=== PATIENT | female | born 1990 | race Caucasian/White ===

== ENCOUNTER 2016-12-22 02:08 | Inpatient (IN) | payer OTHER ==
[~2016-12-22] VITALS: Ht 165.1 cm; Wt 93.6 kg
[2016-12-22] MEDS ORDERED: LACTATED RINGER'S 1000ML 500 ML IV PRN (11:20)
[2016-12-22] MEDS ORDERED: LACTATED RINGER'S 1000ML 1,000 ML IV PRN (11:20)
[2016-12-22] MEDS ORDERED: OXYTOCIN 30 UNITS/500ML NSS IV PRN (11:30)
[2016-12-22] MEDS: LACTATED RINGER'S 1000ML 1,000 ML IV SCH ×2 (11:49→17:12)
--- NOTE | 2016-12-22 11:54 | HISTORY & PHYSICAL EXAMINATION ---
DATE OF ADMISSION: 12/22/2016 CHIEF COMPLAINT: Scheduled induction of labor for postdates and recently diagnosis gestational hypertension. HISTORY OF PRESENT ILLNESS: The patient is a 26-year-old G1, P0 at 40 weeks and 3 days of gestation who was originally scheduled for induction of labor on Saturday, December 24. She presented to the office on 12/19/2016 when her blood pressure was 136/80 and she had protein 1+ in her urine. She had labs drawn for LFTs and platelets which were normal and 24-hour protein level was 224 mg in 24-hour urine, so she was recommended to come back in 2 days for repeat blood pressure. She presented yesterday, her blood pressure was 142/96 and she was recommended to have induction of labor at term due to gestational hypertension and at term. The patient denies any problems today, no contractions, leakage of fluid, or vaginal bleeding. She reports good movements. She denies fever, chills, chest pain, shortness of breath. She denies headache, change in her vision, nausea, vomiting, epigastric or right upper quadrant pain. Her has been uncomplicated except history of scoliosis and a recently diagnosis borderline polyhydramnios, YAIMA of 21. Growth scan showed estimated weight to be 8 pounds and 8 ounces, 59th percentile. PAST MEDICAL HISTORY: As above. She denies any medical problems. PAST SURGICAL HISTORY: None. MEDICATIONS: vitamins. ALLERGIES: PENICILLIN CAUSES RASH. 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 She denies smoking, alcohol, or drug use. GYNECOLOGIC HISTORY: The patient denies any history of STDs including Chlamydia, gonorrhea, herpes. This is her first . LABS: Her blood type is O positive, antibody screen negative, RPR nonreactive, hepatitis B surface antigen negative. H\T\H was 13/40, platelets 282. GC chlamydia cultures were negative. Urine culture was negative. Glucola was 150 mg per deciliter. Repeat H\T\H was 13/38. GBS culture was negative on 11/27/2016. PHYSICAL EXAMINATION: GENERAL: The patient is alert, oriented x3, not in acute distress. VITAL SIGNS: Blood pressure is 145/93, repeat is 137/94, pulse is 95, respiration 22, temperature is 36.5 Celsius. CARDIOVASCULAR SYSTEM: S1, S2, RRR. LUNGS: Clear to auscultation bilaterally. ABDOMEN: Soft, gravid, Yaya 8-9 pounds. EXTREMITIES: Nontender, +1 pretibial and feet edema. Reflexes are 3+. VE: 2/ 60%/ -3 FHR: 140's category I Valeria : mild to moderate contractions q 2-4 min ASSESSMENT AND PLAN: The patient is a 26-year-old G1, P0 at 40 weeks and 3 days of gestation presenting for scheduled induction of labor at term due to gestational hypertension. Vital signs stable, afebrile. Physical exam is unremarkable except brisk reflexes. heart rate is reassuring. GBS negative. Plan is admit her, start IV fluids, obtain labs for LFTs, platelets, CBC and start Pitocin for augmentation of her contractions and induction. The patient understands that the induction may take longer time than spontaneous labor. She understands the risks and benefits and agrees with the plan. All questions were answered. FUNMI
[2016-12-22 12:22] LABS: ALT/SGPT 16 U/L (12-78); AST/SGOT 16 U/L (15-37); BLOOD UREA NITROGEN 8 mg/dl (7-18); BUN/CREATININE RATIO 14.1 (10-20); CALCIUM 9.2 mg/dl (8.5-10.1); CARBON DIOXIDE 23 mmol/L (21-32); CHLORIDE 106 mmol/L (98-107); CREATININE 0.56 mg/dl (0.60-1.20); GLUCOSE 76 mg/dl (70-99); POTASSIUM 3.9 mmol/L (3.5-5.1); SODIUM 139 mmol/L (136-145)
[2016-12-22 12:24] LABS: ALB/GLOB RATIO 0.7 (0.9-2); ALKALINE PHOSPHATASE 188 U/L (45-117); HEMATOCRIT 37.8 % (37-47); MEAN CORPUSCULAR HEMOGLOBIN 31.2 pg (25-34); MEAN CORPUSCULAR HGB CONC 34.7 g/dl (32-36); PLATELET COUNT 159 K/uL (130-400); WHITE BLOOD COUNT 11.47 K/uL (4.8-10.8)
[2016-12-22 14:29] VITALS: Ht 165.1 cm; Wt 93.6 kg
[2016-12-22] MEDS ORDERED: PRENTAB26 PO (14:29)
[2016-12-22] MEDS ORDERED: BUTORPHANOL TARTRATE 1 MG/ML VIAL IV PRN (22:00)
[2016-12-22] MEDS ORDERED: BUPIVACAINE 0.25% 30 ML VIAL ONE (23:17)
[2016-12-22] MEDS ORDERED: EpHEDrine SULFATE INJ 50 MG/ML AMP ONE (23:18)
[2016-12-22] MEDS ORDERED: FENTANYL CITRATE INJ 50 MCG/1 ML 2 ML VIAL ONE (23:18)
[2016-12-22] MEDS ORDERED: FENTANYL 2MCG/ML ROPIV 1.25MG/ML 100ML BAG EPI ONE (23:18)
[2016-12-23] MEDS ORDERED: NALOXONE HCL INJ 1 MG in SODIUM CHLORIDE 0.9% 1000ML 1,000 ML IV PRN (00:04)
[2016-12-23] MEDS ORDERED: LACTATED RINGER'S 1000ML 500 ML IV PRN (00:04)
[2016-12-23] MEDS ORDERED: NALBUPHINE HCL INJ 10 MG/ML AMP IV PRN (00:15)
[2016-12-23] MEDS ORDERED: ONDANSETRON INJ 2 MG/ML 2 ML VIAL IV PRN (00:15)
[2016-12-23] MEDS ORDERED: NALOXONE HCL INJ 0.4 MG/1 ML VIAL/CARP IV PRN (00:15)
[2016-12-23] MEDS ORDERED: EpHEDrine SULFATE INJ 50 MG/ML AMP IV PRN (00:15)
[2016-12-23] MEDS ORDERED: DiphenhydrAMINE HCL 50 MG/ML VIAL IV PRN (00:15)
[2016-12-23] MEDS: LACTATED RINGER'S 1000ML 1,000 ML IV SCH ×2 (06:38→12:36)
[2016-12-23] MEDS: FENTANYL 2MCG/ML ROPIV 1.25MG/ML 100ML BAG EPI PRN ×4 (06:56→15:06)
[2016-12-23] MEDS ORDERED: FENTANYL CITRATE INJ 50 MCG/1 ML 2 ML VIAL ONE (11:35)
[2016-12-23] MEDS: CLINDAMYCIN IV 900 MG in DEXTROSE 5% ADD-VANTAGE 100ML 100 ML IV SCH (15:46)
[2016-12-23] MEDS ORDERED: MEPERIDINE HCL 25 MG/ML CARP ONE (15:55)
[2016-12-23] MEDS ORDERED: GENTAMICIN INJ 120 MG in DEXTROSE 5% 100ML 100 ML IV ONE (16:00)
[2016-12-23] MEDS ORDERED: MISOPROSTOL 200 MCG TAB ONE (16:07)
[2016-12-23] MEDS ORDERED: DIPHTHERIA/TETANUS/PERTUSSIS 0.5 ML SYR/VIAL IM. ONE (16:30)
[2016-12-23] MEDS ORDERED: BENZOCAINE 20% AER SPR 82.5 GM CAN EXT PRN (16:30)
[2016-12-23] MEDS ORDERED: OXYTOCIN 30 UNITS/500ML NSS IV PRN (16:30)
[2016-12-23] MEDS ORDERED: ACETAMINOPHEN 325 MG TAB PO PRN (16:30)
[2016-12-23] MEDS ORDERED: ACETAMINOPHEN/CODEINE 300/30MG TAB PO PRN ×2 (16:30)
[2016-12-23] MEDS ORDERED: LANOLIN OINT EXT PRN ×2 (16:30)
[2016-12-23] MEDS ORDERED: SUPERCREAM 0.870 % 15GM JAR EXT PRN (16:30)
[2016-12-23] MEDS ORDERED: HYDROCORTISONE ACETATE 25 MG SUPP PR PRN (16:30)
[2016-12-23] MEDS ORDERED: MISOPROSTOL 200 MCG TAB PR SCH (16:30)
[2016-12-23] MEDS ORDERED: MEASLES, MUMPS & RUBELLA VIRUS VIAL SQ. ONE (16:30)
[2016-12-23] MEDS ORDERED: GENTAMICIN CONSULT ACTIVE PRN (17:00)
--- NOTE | 2016-12-23 17:12 | DELIVERY SUMMARY ---
DATE OF OPERATION: 12/23/2016 TIME OF DELIVERY OF BABY: 1529 p.m. TIME OF DELIVERY OF PLACENTA: 1555 p.m. DETAILS OF DELIVERY: The patient was found to be fully dilated and desired to push. She pushed for about 1-1/2 hours and she was very uncomfortable and the head was over a tight perineum and the hymenal ring. Offered her episiotomy to facilitate delivery of the head and patient agreed with the plan. Right mediolateral episiotomy was opened and head was delivered without difficulty. Shoulders were delivered with minimal traction. Baby was handed off to the mother where mouth and nose were suctioned. Cord was clamped x2 and cut. It was a 3-vessel cord. Then cord blood was obtained. The vagina and perineum were checked for lacerations. There was a right mediolateral episiotomy which was second degree. It was confirmed with rectal exam. Good sphincter tone was noted and gloves were changed. There was a right vaginal laceration on the lower third as well as a left vaginal laceration on the lower third of the vagina. At first, right mediolateral episiotomy was repaired with 2-0 Vicryl in a running fashion, bringing the vaginal mucosa together and perineal body muscles and bulbocavernosus muscles together and the skin in a subcuticular fashion. There was oozing on the right vaginal wall superior to the episio. It was repaired with 2-0 Vicryl in a running locked fashion and multiple sutures were placed to control the oozing. Good hemostasis was achieved. The left vaginal wall was also oozing from the laceration and it was repaired with 2-0 Vicryl in a running locked fashion. Multiple sutures were used to control the bleeding. It was still oozing a small amount of blood from the edges. Retractors were placed in the patient's vagina. Cervix was visualized, grasped with the ring forceps. Cervix was examined to be intact. No bleeding noted. The placenta was found to be in the vagina, delivered spontaneously as intact and complete. Uterus was explored and found to be empty. Lower segment was cleared of all clots and debris. EBL was 400. Bimanual massage was done to help to contract the uterus which happened within 30 seconds. IV Pitocin infusion was started and then she was given 800 mcg of Cytotec rectally. Gloves were changed and then the left vaginal laceration was checked to be again oozing. Pressure was applied and then Fredis powder was applied over this laceration and good hemostasis was achieved. Mother and baby tolerated the procedure well. Sponge, lap and needle counts were correct x2. Baby was a viable female , Apgars 8/9, weight is 9 pounds 1.4 ounces and I was present during whole procedure. I attest to the content of the Intraoperative Record and any orders documented therein. Any exceptions are noted below. LUCIOD
--- NOTE | 2016-12-23 17:48 | Anesthesia Procedure Note ---
Anesthesia Epidural Removal Nt Date & Time Dec 23, 2016 at 17:47 Vital Signs Pain Intensity: 6.0 Notes Mental Status: alert / awake / arousable, participated in evaluation Nausea / Vomiting: adequately controlled Pain: adequately controlled Airway Patency, RR, SpO2: stable & adequate BP & HR: stable & adequate Hydration State: stable & adequate Neuraxial Anesthesia: was administered, sensory block is resolving Anesthetic Complications: no major complications apparent, pt satisfied with anesthetic care Epidural: removed without complications, with tip intact
[2016-12-23] MEDS: GENTAMICIN INJ 140 MG in DEXTROSE 5% 100ML 100 ML IV SCH (18:12)
[2016-12-23 20:00] VITALS: BP 142/92; PULSE 92; TEMP 36.7
[2016-12-23] MEDS: MAGNESIUM HYDROXIDE SUSP 30 ML UDC PO SCH (21:00)
[2016-12-23] MEDS: IBUPROFEN 600 MG TAB PO PRN (21:16)
[2016-12-23] MEDS: BISACODYL 5 MG TABEC PO SCH (21:16)
[2016-12-23] MEDS: DOCUSATE SODIUM 100 MG CAP PO SCH (21:16)
--- NOTE | 2016-12-23 21:58 | Pharmacy Progress Note ---
Pharmacy Antibiotic Consult Date of Service: Dec 23, 2016. Pharmacy Dosing Scope Pharmacy is consulted to initiate Gentamicin IV dosing therapy, order appropriate labs and adjust drug dose/frequency. Subjective The patient is a 26 year old female admitted on Dec 22, 2016 at 10:20. Objective Height (Feet): 5 Height (Inches): 5.00 Weight (Kilograms): 93.600 Assessment & Plan Assessment * 26 y/o F on empiric IV Gentamicin and Clindamycin (not a consult) for unclear diagnosis (genitourinary, non-UTI indication). Patient was febrile during delivery. Therefore, antibiotics were started and to be continued per provider. * Patient with no renal impairment that is at baseline. No labs from today, but per labs on 12/22, sCr was 0.56mg/dL with estimated CrCl >100 mL/min. Estimated Gentamicin pharmacokinetics: * Ke ~0.3, T1/2 ~2.3 hrs, and Vd ~27 L * Given her BMI 34.3 kg/m2 (actual weight >120% of ideal body weight), will calculate Gentamicin dose based on adjusted body weight Plan * Initiate Gentamicin 140mg (~2mg/kg based on adjust body weight) IV q8 * Goal Gentamicin peak 4-10 mcg/mL * Goal Gentamicin trough <1-2 mcg/mL * Peak and trough level before/after 5th dose on 12/25 @ 0200, which should be reflective of steady state * Peak to be drawn ~1 hour after Gentamicin completed infusion Pharmacy will continue to follow and will adjust dose/frequency as necessary. Thank you
[2016-12-24] VITALS (7 sets, daily range): BP systolic 114–130; BP diastolic 78–91; PULSE 79–103; TEMP 36.4–36.9
[2016-12-24] MEDS: LACTATED RINGER'S 1000ML 1,000 ML IV SCH (00:19)
[2016-12-24] MEDS: CLINDAMYCIN IV 900 MG in DEXTROSE 5% ADD-VANTAGE 100ML 100 ML IV SCH ×3 (00:20→15:52)
[2016-12-24] MEDS: GENTAMICIN INJ 140 MG in DEXTROSE 5% 100ML 100 ML IV SCH ×3 (01:35→18:00)
[2016-12-24] MEDS: PRENATAL VITAMIN TAB PO SCH (07:22)
[2016-12-24] MEDS: IBUPROFEN 600 MG TAB PO PRN ×2 (07:22→13:06)
[2016-12-24] MEDS: DOCUSATE SODIUM 100 MG CAP PO SCH ×2 (07:23→19:43)
[2016-12-24 08:12] LABS: CREATININE 0.74 mg/dl (0.60-1.20)
[2016-12-24] MEDS: FERROUS SULFATE 325 MG TAB PO SCH (08:59)
[2016-12-24 09:04] LABS: HEMATOCRIT 27.1 % (37-47); MEAN CELL VOLUME 88.3 fL (80-100); MEAN CORPUSCULAR HEMOGLOBIN 30.6 pg (25-34); MEAN CORPUSCULAR HGB CONC 34.7 g/dl (32-36); MEAN PLATELET VOLUME 12.7 fL (7.4-10.4); PLATELET COUNT 131 K/uL (130-400); RED BLOOD COUNT 3.07 M/uL (4.2-5.4); WHITE BLOOD COUNT 17.77 K/uL (4.8-10.8)
--- NOTE | 2016-12-24 09:57 | OB/GYN Progress Note ---
CERTIFIED WELLNESS PROGRAM COORDINATOR Progress Note Date of Service Dec 24, 2016. Subjective conversation w/ patient, physical exam Ambulation: ambulating normally Voiding: no voiding problems Passing Gas: Yes Diet Tolerance: Regular Diet Lochia: Moderate Feeding Type: Breast Feeding Review of Systems Constitutional: No chills, No fatigue, No fever, No problem reported, No sweats , No weakness, No weight loss Respiratory: No cough, No dyspnea at rest, No dyspnea on exertion, No hemoptysis, No problem reported, No shortness of breath, No sputum, No wheezing Cardiac: No PND, No chest pain, No claudication, No edema, No orthopnea, No palpitations, No problem reported Breast: No breast lump, No breast pain, No change in shape, No nipple discharge , No problem reported, No see HPI Abdomen: No GI bleeding, No constipation, No diarrhea, No nausea, No pain, No problem reported, No vomiting Female : No abnormal vaginal bleeding, No dysuria, No hematuria, No incontinence, No problem reported, No see HPI, No urinary frequency, No vaginal discharge Objective Vital Signs Date Time Temp Pulse Resp B/P Pulse Ox O2 Delivery O2 Flow Rate FiO2 12/24/16 04:15 36.6 101 18 116/81 Room Air 12/24/16 00:05 Room Air 12/24/16 00:05 36.9 99 18 126/84 Room Air 12/23/16 20:00 36.7 92 20 142/92 Room Air 12/23/16 20:00 Room Air Physical Exam General Appearance: WELL-APPEARING, WD/WN Respiratory/Chest: chest non-tender, lungs clear, normal breath sounds, no respiratory distress, no accessory muscle use Cardiovascular: regular rate, rhythm, no edema, no gallop, no JVD, no murmur Abdomen: normal bowel sounds, non tender, soft, no organomegaly, no pulsatile mass Fundus: Firm Incision Description: Clean, Dry & Intact Extremities: normal range of motion, non-tender, normal inspection, no pedal edema, no calf tenderness Laboratory Results Last 24 Hours Test 12/24/16 07:00 White Blood Count 17.77 K/uL Red Blood Count 3.07 M/uL Hemoglobin 9.4 g/dL Hematocrit 27.1 % Mean Corpuscular Volume 88.3 fL Mean Corpuscular Hemoglobin 30.6 pg Mean Corpuscular Hemoglobin Concent 34.7 g/dl RDW Standard Deviation 43.3 fL RDW Coefficient of Variation 13.4 % Platelet Count 131 K/uL Mean Platelet Volume 12.7 fL Creatinine 0.74 mg/dl Est Creatinine Clear Calc Drug Dose 131.4 ml/min Estimated GFR () 130.5 Estimated GFR (Non- 112.6 Assessment and Plan Post- Day Number: 1 Continue Routine Care: VD day #1 pt doing well s/p chorioamnionitis on antibx X 24 hrs anticipate disch tomorrow
[2016-12-24] MEDS ORDERED: NURSING VERBAL MED ORDER ONE (16:45)
[2016-12-24] MEDS: MAGNESIUM HYDROXIDE SUSP 30 ML UDC PO SCH (21:10)
[2016-12-24] MEDS: BISACODYL 5 MG TABEC PO SCH (21:10)
[2016-12-25] MEDS ORDERED: GENTAMICIN TROUGH ONE (01:30)
[2016-12-25] MEDS ORDERED: GENT. PEAK 1 EA IV ONE (04:00)
[2016-12-25 04:05] VITALS: BP 123/91; PULSE 94; TEMP 36.6
[2016-12-25] MEDS ORDERED: BISACODYL 10 MG SUPP PR PRN (07:00)
[2016-12-25] MEDS ORDERED: MTR600X PO (07:31)
--- NOTE | 2016-12-25 07:33 | Discharge Instructions ---
Discharge Instructions Date of Service Dec 25, 2016. Admission Reason for Admission: Induction Discharge Discharge Diagnosis / Problem: Vaginal Delivery Discharge Goals Goal(s): Routine recovery after delivery Medications Continue Dispensed Medications: supercream, dermaplast, tucks, lansinoh Activity Recommendations Activity Limitations: per Instructions/Follow-up section . Instructions / Follow-Up Instructions / Follow-Up ACTIVITY RECOMMENDATIONS: * Gradual return to full activity over the next 2-3 weeks. * No lifting - nothing heavier than baby over the next 2-3 weeks. * Do not engage in vigorous exercise, sexual activity or sports until cleared by your physician. * Do not drive or operate any motorized equipment until cleared by your physician. * You may shower/bathe daily. BREAST CARE: If you are not breast feeding: * Wear a supportive bra 24 hours a day for one to two weeks. * Avoid stimulating your breasts and nipples as much as possible during the first few weeks after delivery. * When taking a shower, have the warm water hit your back, not breasts. * When your breasts feel full, apply ice packs. Usually three to four times a day helps ease the discomfort. * Take a mild pain medication (Tylenol/Motrin) when you are uncomfortable. If breast feeding: * Use breast milk to lubricate nipples. Lansinoh cream may be used for sore nipples. You do not need to remove cream prior to breast feeding. If using a different brand of cream, check the label for directions regarding removal of cream prior to nursing. * Wear a supportive bra. * If having problems with breasts or breast feeding, call a portfolio consultant or your health care provider. EPISIOTOMY CARE: After delivery, if you have an episiotomy (stitches), the following steps will ease discomfort and aid healing. * For the first 24 hours after delivery, place ice packs next to your episiotomy to help reduce swelling. * After the first 24 hour-period, sitz baths, either portable or in the tub, are suggested. A shower with a shower arm sprayed over the episiotomy may be comforting. * Luly care should be done after each voiding and bowel movement. Squirt warm water from a plastic bottle over the perineum (region of the body between the anus and urinary opening) and pat dry. * Use Dermoplast to ease discomfort. Shake container. [place] directly over the episiotomy. * Place a Tucks on a clean sanitary pad next to your episiotomy. OVER THE COUNTER MEDICATION: * For discomfort or pain, you may use Acetaminophen (Tylenol), Ibuprofen (Advil ), or Naproxen (Aleve) following the package directions. * For constipation you may use Colace following the package directions. SPECIAL CARE INSTRUCTIONS: When you are discharged from the hospital, it is important for you to follow the instructions listed below: * During the first week at home, you should be able to care for yourself and your baby. In addition, the usual light household activities are encouraged. * Limit your activities to the way you feel. Do not try to clean the house or move furniture. Be sensible. * If you actively engage in sports and have done so up until the time of your delivery, you may resume these activities as soon as you feel able. This may take up to one month or even longer. Use good judgment. * Continue to take your vitamins for at least six weeks after the of your baby. * Your diet need not be limited unless you were on a special diet before your delivery. Breast-feeding mothers need around 2500 calories per day and at least 64-80 ounces of fluid per day (8 to 10 glasses). * You should eat foods from the four major food groups. Crash diets or fad diets are to be avoided. Eating lean meats, fresh fruits and vegetables, low-fat dairy products, high fiber foods and a regular exercise program, will help you get back to your pre- weight without putting your health at risk. * Constipation is sometimes a problem after delivery. Take a mild laxative as needed. If breast feeding, Milk of Magnesia is acceptable to use. You may use a suppository or Fleets enema if no episiotomy. * A daily shower or tub bath is suggested. Be sure to thoroughly and gently dry the perineum. * A bloody vaginal discharge will usually continue until around four weeks post . A small amount of bleeding may continue for as long as six weeks. Vaginal discharge changes from the bright red bleeding after delivery to pink then brownish and finally yellowish-pink before becoming white and disappearing. * Bleeding may increase with activity. Your first period may come in 4-8 weeks. If you are breast feeding, your period may be delayed even longer. * Crellin (sex) can begin whenever both you and your partner feel comfortable and do not have any form of genital infection. It is recommended that you wait until after your return appointment and discuss with your physician. If you have questions, please talk to your health care practitioner. A condom should be used to prevent infection and . * Foreplay, gentle intercourse and lubrication is very important the first several times to prevent pain. A water-based lubricant such as K-Y jelly or Astroglide may be used. * Tampons may be used six weeks after delivery. * Douching should be avoided for 6 weeks after delivery. * If you have RH negative blood and your baby is RH positive, you will receive RHOGAM by injection prior to discharge. The nurse will give you a card to keep with you that has the date and place that you received RHOGAM after delivery. * During your care, you had a Rubella screen done to check for the presence of rubella antibodies in your blood. If your test was negative, you will receive a Rubella vaccine prior to discharge. This vaccine may cause a fever, soreness at the injection site and flu-like symptoms. If these symptoms persist, notify your health care practitioner. is not advised for three months after a Rubella vaccine. There is a higher chance of having a baby with defects if conceived within three months of getting the vaccine. * If you were discharged 24 hours from delivery or before 48 hours: Visiting nurses will come to your home 48 hours after discharge to assess you and your baby. The visiting nurse will meet with you while you are in the hospital to arrange a time and get directions to your home. * Verbalizes understanding of car seat law as reviewed with patient nursing. * Car Seat hand-out given and reviewed with patient by nursing. * Shaken baby information reviewed with patient by nursing. Call you doctor if: * Heavy bleeding (saturating several pads an hour) or passing clots the size of your fist. * A fever >101 degrees F (38.3 degrees C) on two occasions four hours apart and/or chills. * Unusual pain in the pelvic or vaginal areas. * "Baby Blues" lasting longer than two weeks. If you have any questions or concerns, call your health care practitioner at . FOLLOW-UP VISIT: * Please call the office at to schedule a 6 week examination. It is important you keep this appointment. * It is important for you to make arrangements for either yearly or twice yearly check-ups thereafter. Current Hospital Diet Patient's current hospital diet: Regular OB Diet Discharge Diet Recommended Diet: Regular OB Diet Pending Studies Studies pending at discharge: no Medical Emergencies . Who to Call and When: Medical Emergencies: If at any time you feel your situation is an emergency, please call 911 immediately. . Non-Emergent Contact Non-Emergency issues call your: Primary Care Provider, Brand Director . . "Provider Documentation" section prepared by Jayson Dove. VTE Core Measure Inpt VTE Proph given/why not?: Treatment not indicated
--- NOTE | 2016-12-25 07:35 | OB/GYN Progress Note ---
LOCAL BULK DRIVER Progress Note Date of Service Dec 25, 2016. Subjective conversation w/ patient Ambulation: ambulating normally Voiding: no voiding problems Passing Gas: Yes Diet Tolerance: Regular Diet Lochia: Small Feeding Type: Breast Feeding Pain: 12/07 Notes: Doing well, no concerns. Would like to go home today. Objective Vital Signs Date Time Temp Pulse Resp B/P Pulse Ox O2 Delivery O2 Flow Rate FiO2 12/25/16 04:05 36.6 94 18 123/91 Room Air 12/24/16 23:35 36.5 79 18 118/78 Room Air 12/24/16 23:35 Room Air 12/24/16 19:40 36.4 92 18 130/91 Room Air 12/24/16 15:45 36.5 86 18 114/78 Room Air 12/24/16 15:45 Room Air 12/24/16 11:45 36.7 96 18 117/80 Room Air Physical Exam General Appearance: WELL-APPEARING Respiratory/Chest: chest non-tender, lungs clear Cardiovascular: regular rate, rhythm Abdomen: normal bowel sounds, soft Fundus: Firm Extremities: normal range of motion, non-tender, no calf tenderness Laboratory Results Last 24 Hours Test 12/25/16 06:55 Assessment and Plan Post- Day Number: 2 Continue Routine Care: -Continue routine care -D/C home today -F/u in 6 weeks.
[2016-12-25 07:51] LABS: CREATININE 0.63 mg/dl (0.60-1.20)
[2016-12-25 07:54] VITALS: BP 116/82; PULSE 85; TEMP 36.7; O2SAT 99
[2016-12-25] MEDS: DOCUSATE SODIUM 100 MG CAP PO SCH (08:47)
[2016-12-25] MEDS: FERROUS SULFATE 325 MG TAB PO SCH (08:48)
[2016-12-25] MEDS: PRENATAL VITAMIN TAB PO SCH (08:48)
[2016-12-25 15:45] VITALS: BP 121/87; PULSE 68; TEMP 36.7; O2SAT 99
[2016-12-25 18:44] VITALS: BP_DIAS 87; PULSE 68; TEMP 36.7
== END 2016-12-25 18:38 | disposition home or self-care (01) | DRG 775 ==
LOC: C.LD 10:20 → C.OBG 12-23 20:03
PROVIDERS: ADMIT Obstetrics & Gynecology; ATTEND Obstetrics & Gynecology
PROC: 10907ZC Drainage of Amniotic Fluid, Therapeutic from Products of Conception, Via Natural or Artificial Opening (ICD-10-PCS; principal; 2016-12-23)
PROC: 0W8NXZZ Division of Female Perineum, External Approach (ICD-10-PCS; principal; 2016-12-23)
PROC: 10E0XZZ Delivery of Products of Conception, External Approach (ICD-10-PCS; principal; 2016-12-23)
PROC: 3E033VJ Introduction of Other Hormone into Peripheral Vein, Percutaneous Approach (ICD-10-PCS; principal; 2016-12-23)
PROC: 0KQM0ZZ Repair Perineum Muscle, Open Approach (ICD-10-PCS; principal; 2016-12-23)
DX: O48.0 Post-term pregnancy (principal); O41.1230 Chorioamnionitis, third trimester, not applicable or unspecified; Z37.0 Single live birth; O77.0 Labor and delivery complicated by meconium in amniotic fluid; O13.3 Gestational [pregnancy-induced] hypertension without significant proteinuria, third trimester; O76 Abnormality in fetal heart rate and rhythm complicating labor and delivery; O40.3XX0 Polyhydramnios, third trimester, not applicable or unspecified; O63.0 Prolonged first stage (of labor); O70.1 Second degree perineal laceration during delivery; Z3A.40 40 weeks gestation of pregnancy

== ENCOUNTER 2020-11-28 06:16 | Inpatient (IN) ==
[2020-11-28] MEDS ORDERED: OXYTOCIN 30 UNITS/500 ML BAG IV PRN ×2 (07:55→17:25)
--- NOTE | 2020-11-28 07:58 | Progress Note ---
Date of Service November 28, 2020 Subjective Pt admitted for labor FHR; CAT1 Ctx 2-4mins VE; 6-7/75/-2 Bedside sono; Vt Results & Data ([facility]) Vital Signs (Past 12 Hours) Vital Signs Temp Pulse Resp BP 11/28/20 06:30 36.8 C 18 11/28/20 06:28 125 H 123/74 11/28/20 06:26 130 H 128/77
[2020-11-28] MEDS: LACTATED RINGER'S 1,000 ML IV PRN ×2 (08:30→14:05)
[2020-11-28 08:35] LABS: Hematocrit (blood only) 39.1 % (37-47); Hemoglobin 13.3 g/dL (12.0-16.0); Mean Corpuscular Hemoglobin 30.4 pg (25-34); Mean Corpuscular Volume 89.3 fL (80-100); Mean Platelet Volume 12.1 fL (7.4-10.4); Platelet Count 200 K/uL (130-400); RDW Coefficient of Variation 12.7 % (11.5-14.5); RDW Standard Deviation 41.3 fL (36.4-46.3); Red Blood Count 4.38 M/uL (4.2-5.4)
--- NOTE | 2020-11-28 12:47 | Obstetrical Progress Note ---
Date of Service November 28, 2020 Assessment & Plan Admission and Anticipated Discharge Date Admission Date: November 28, 2020 Physical Exam Genitourinary: Manual OB Exam: + cervical dilation 8 cm, + cervical effacement 100%, + station -1 and + amniotic fluid clear OB Exam Monitor Tracing: + external FHT monitor used, + external uterine monitor used, + category I and + normal FHT variability AROM with Amni-hook clear fluid Results & Data ([facility]) Vital Signs (Past 12 Hours) Vital Signs Temp Pulse Resp BP 11/28/20 10:27 114 H 122/83 11/28/20 06:30 36.8 C 18 11/28/20 06:28 125 H 123/74 11/28/20 06:26 130 H 128/77
[2020-11-28] MEDS ORDERED: fentaNYL 2MCG/ML ROPIVACAINE 1.25MG/ML 100 ML BAG EPI ONE (13:57)
[2020-11-28] MEDS ORDERED: SODIUM CHLORIDE 0.9% INJ 10 ML VIAL ONE (13:57)
[2020-11-28] MEDS ORDERED: fentaNYL citrate 100 MCG/2 ML VIAL ONE (13:57)
[2020-11-28] MEDS ORDERED: BUPIVACAINE 0.25% 30 ML VIAL ONE (13:57)
[2020-11-28] MEDS ORDERED: ePHEDrine sulfate 50 MG/ML AMP ONE (13:57)
--- NOTE | 2020-11-28 14:12 | Anesthesiology Consultation ---
Date of Service November 28, 2020 Assessment & Plan Chart Review Chart Review: Acceptable Risk for Labor Epidural History Height/Weight Height: 5 ft 5 in Weight: 95.254 kg Allergies Allergy/AdvReac Type Severity Reaction Status Date / Time Penicillins Allergy Mild RASH Verified 11/28/20 07:07 Medications Home Medications Medication Instructions Recorded Confirmed Last Taken aspirin [Baby Aspirin] 81 mg PO DAILY 11/28/20 11/28/20 11/27/20 20:00 prenat.vits,vishnu,uxm-xduq-onvyf 1 tab PO DAILY 11/28/20 11/28/20 11/26/20 08:00 [ Vitamin] Active Medications Generic Name Dose Route Start Last Admin Trade Name Freq PRN Reason Stop Dose Admin Lactated Ringer's 1,000 mls @ 125 mls/hr 11/28/20 07:55 11/28/20 14:05 Lr IV 11/30/20 07:54 999 mls/hr .Q8H PRN Administration L&D Protocol Protocol Past Medical History Medical History History of varicella vaccination Past Family History Family History Grandmother (Maternal) Breast cancer dx in 80's Grandmother (Paternal) Stroke Grandfather (Paternal) Myocardial infarction Mother Cardiomyopathy Spherocytosis Denies family history of Ovarian cancer Colorectal cancer Uterine cancer Past Surgical History Surgical History S/P wisdom tooth extraction Social History Smoking Status: Never smoker Hx Alcohol Use: No Hx Substance Use: No Physical Exam Vital Signs Last Vital Signs Temp 36.8 C 11/28/20 11:31 Pulse 103 H 11/28/20 14:04 Resp 20 11/28/20 11:31 BP 122/83 11/28/20 10:27 Pulse Ox 98 11/28/20 14:04 Testing Laboratory Results 11/28/20 08:14
[2020-11-28] MEDS ORDERED: ePHEDrine sulfate 50 MG/ML AMP IV PRN (14:32)
[2020-11-28] MEDS ORDERED: fentaNYL 2MCG/ML ROPIVACAINE 1.25MG/ML 100 ML BAG EPI PRN (14:32)
[2020-11-28] MEDS ORDERED: ONDANSETRON INJ 2 MG/ML 2 ML VIAL IV PRN (14:32)
[2020-11-28] MEDS ORDERED: NALOXONE HCL 0.4 MG/1 ML VIAL/CARP IV PRN (14:32)
[2020-11-28] MEDS ORDERED: NALOXONE HCL 1 MG in SODIUM CHLORIDE 0.9% 1000ML 1,000 ML IV PRN (14:32)
--- NOTE | 2020-11-28 17:22 | Delivery Summary ---
Vaginal Delivery Summary Date of Service November 28, 2020 Vaginal Delivery Summary Delivery note live male RAINE over intact perineum with delayed cord clamping and Apgars 8/9 weight pending. Cord blood obtained and placenta delivered spontaneously and intact. No tears. EBL 200 ml. Final sponge and instrument count are correct. Mom and baby stable.
[2020-11-28] MEDS ORDERED: ACETAMINOPHEN 325 MG TAB PO PRN (17:25)
[2020-11-28] MEDS ORDERED: SUPERCREAM 0.870% 15 GM JAR EXT PRN (17:25)
[2020-11-28] MEDS ORDERED: HYDROCORTISONE ACETATE 25 MG SUPP PR PRN (17:25)
[2020-11-28] MEDS ORDERED: bisacodyL 10 MG SUPP PR PRN (17:25)
[2020-11-28] MEDS ORDERED: DIPHTHERIA/TETANUS/PERTUSSIS 0.5 ML SYR/VIAL IM ONE (17:25)
[2020-11-28] MEDS ORDERED: BENZOCAINE 20% AER SPR 82.5 GM CAN EXT PRN (17:25)
--- NOTE | 2020-11-28 17:37 | Anesthesia Procedure Note ---
Date of Service November 28, 2020 Anesthesia Post Epidural Note Vital Signs Vital Signs: Temp Pulse Resp BP Pulse Ox 36.6 C 100 H 16 125/75 98 11/28/20 15:05 11/28/20 17:32 11/28/20 16:03 11/28/20 17:32 11/28/20 17:09 Pain Intensity Bilateral Abdomen: Pain Intensity: 3 Notes Mental Status: alert / awake / arousable Nausea / Vomiting: adequately controlled Pain: adequately controlled Airway Patency, RR, SpO2: stable & adequate BP & HR: stable & adequate Hydration State: stable & adequate Neuraxial Anesthesia: was administered and sensory block is resolving Anesthetic Complications: no major complications apparent and Pt Satisfied with anesthetic care Epidural: Removed without complications and With tip intact
[2020-11-28] MEDS: DOCUSATE SODIUM 100 MG CAP PO SCH (21:21)
[2020-11-28] MEDS: IBUPROFEN 600 MG TAB PO PRN (22:09)
[2020-11-29] MEDS: IBUPROFEN 600 MG TAB PO PRN ×2 (05:24→10:57)
[2020-11-29 06:28] LABS: Hematocrit (blood only) 37.8 % (37-47); Hemoglobin 12.7 g/dL (12.0-16.0); Mean Corpuscular Hemoglobin 30.2 pg (25-34); Mean Corpuscular Hgb Conc 33.6 g/dL (32-36); Mean Platelet Volume 12.1 fL (7.4-10.4); Platelet Count 225 K/uL (130-400); RDW Standard Deviation 42.3 fL (36.4-46.3); White Blood Count 14.78 K/uL (4.8-10.8)
[2020-11-29] MEDS ORDERED: PRENATAL VITAMIN 1 TAB PO SCH (08:00)
[2020-11-29] MEDS: DOCUSATE SODIUM 100 MG CAP PO SCH (08:21)
[2020-11-29] MEDS ORDERED: ASPIRIN 81 MG ECTAB PO SCH (09:00)
[2020-11-29] MEDS ORDERED: NON-FORMULARY MEDICATION (Prenat.Vits,Cal,Min-Iron-Folic Tablet) PO SCH (09:00)
--- NOTE | 2020-11-29 09:04 | Obstetrical Progress Note ---
Date of Service November 29, 2020 Assessment & Plan (1) Normal course: PPD #1 pt doing well pt wishes to be d/favio home later today Subjective Ambulation: ambulating normally Voiding: no voiding problems Passing Gas:: Yes Diet Tolerance:: regular diet Lochia:: Small Feeding Type:: breast feeding Review of Systems All systems reviewed & are unremarkable except as noted in HPI & below Physical Exam Constitutional WD/WN, vitals as above well developed and well nourished Eyes PERRL, conjunctivae normal, anicteric sclerae Neck trachea midline, no thyromegaly Respiratory normal respiratory effort, lungs clear to auscultation Auscultation: no crackles, no rales and no wheezes Cardiovascular RRR, no murmur, no edema Gastrointestinal (Abdomen) normal bowel sounds, soft, nontender, no hepatosplenomegaly Uterus is below umbilicus Musculoskeletal no cyanosis or clubbing, extremities motor strength 5/5 Skin no rashes, warm and dry Neurologic patellar DTR's 2+ bilat, sensation intact Psychiatric A+Ox3, euthymic affect Genitourinary normal external appearance Results & Data ([facility]) Vital Signs (Past 12 Hours) Vital Signs Temp Pulse Resp BP Pulse Ox 11/29/20 07:50 36.4 C L 78 18 118/82 98 11/29/20 03:00 36.6 C 83 20 110/76 11/28/20 23:20 36.8 C 86 20 112/75
[2020-11-29] MEDS ORDERED: bisacodyL 5 MG TABEC PO SCH (20:00)
== END 2020-11-29 18:05 | disposition home or self-care (01) ==
LOC: OPB 06:16 → 4S1 06:18 → 4S2 21:13

== ENCOUNTER 2022-12-22 10:51 | Inpatient (IN) ==
[2022-12-22] MEDS ORDERED: OXYTOCIN 30 UNITS/500 ML BAG IV PRN ×3 (12:05→23:04)
[2022-12-22] MEDS ORDERED: LIDOCAINE 1% LOCAL 20 ML VIAL INFIL PRN (12:05)
[2022-12-22 12:59] LABS: Hematocrit (blood only) 34.3 % (37.0-47.0); Hemoglobin 11.3 g/dl (12.0-16.0); Mean Corpuscular Hemoglobin 28.8 pg (25.0-34.0); Mean Corpuscular Hgb Conc 32.9 g/dL (32.0-36.0); Mean Corpuscular Volume 87.3 fL (80.0-100.0); Mean Platelet Volume 12.1 fL (9.4-12.4); Platelet Count 206 K/uL (130-400); RDW Coefficient of Variation 12.6 % (11.5-14.5); RDW Standard Deviation 40.6 fL (36.4-46.3); Red Blood Count 3.93 M/uL (4.20-5.40); White Blood Count 10.93 K/ul (4.8-10.8)
[2022-12-22] MEDS ORDERED: CALCIUM CARBONATE 500 MG CHEWABLE TAB PO PRN (16:15)
[2022-12-22] MEDS ORDERED: ePHEDrine sulfate 50 MG/ML AMP ONE (17:02)
[2022-12-22] MEDS ORDERED: fentaNYL citrate PF 100 MCG/2 ML VIAL ONE ×2 (17:03→22:19)
[2022-12-22] MEDS ORDERED: fentaNYL 2MCG/ML ROPIVACAINE 1.25MG/ML 100 ML BAG EPI ONE (17:03)
[2022-12-22] MEDS ORDERED: SODIUM CHLORIDE 0.9% PF INJ 10 ML VIAL ONE ×2 (17:03→22:19)
[2022-12-22] MEDS ORDERED: LIDOCAINE 2%/EPINEPHRINE 1:200,000 20 ML PF ONE (17:03)
[2022-12-22] MEDS ORDERED: BUPIVACAINE 0.25% PF 30 ML VIAL ONE ×2 (17:03→22:19)
[2022-12-22] MEDS: LACTATED RINGER'S 1,000 ML IV PRN ×2 (17:03→17:54)
--- NOTE | 2022-12-22 17:31 | Anesthesiology Consultation ---
Date of Service December 22, 2022 Assessment & Plan Chart Review Chart Review: Acceptable Risk for Labor Epidural Consults Requested none ASA ASA2 Proposed Anesthesia Anesthesia Type: Labor Epidural Risk / Benefits Reviewed With: PT / POA / Parent / Guardian, Accepts Plan and Informed Consent Obtained History Height/Weight Height: 5 ft 6 in Weight: 94.801 kg Allergies Allergy/AdvReac Type Severity Reaction Status Date / Time Penicillins Allergy Mild RASH Verified 11/28/20 07:07 Medications Home Medications Medication Instructions Recorded Confirmed Last Taken prenat.vits,vishnu,xiq-wgrt-tdugt 1 tab PO DAILY 11/28/20 12/22/22 11/26/20 08:00 Active Medications Generic Name Dose Route Start Last Admin Trade Name Freq PRN Reason Stop Dose Admin Calcium Carbonate 1,000 mg 12/22/22 16:15 12/22/22 16:35 Calcium Carbonate 500 Mg Chewable Tab PO 01/21/23 16:14 1,000 mg Q4 PRN Administration Indigestion Lactated Ringer's 1,000 mls @ 125 mls/hr 12/22/22 12:05 12/22/22 17:03 Lr IV 12/24/22 12:04 999 mls/hr .Q8H PRN Administration L&D Protocol Protocol Past Medical History Medical History History of varicella vaccination Exercise / Class Metabolic Activity II 4-5 Yardwork/Stairs/Walk up hill Past Family History Family History Grandmother (Maternal) Breast cancer dx in 80's Grandmother (Paternal) Stroke Grandfather (Paternal) Myocardial infarction Mother Cardiomyopathy Spherocytosis Denies family history of Ovarian cancer Colorectal cancer Uterine cancer Past Surgical History Surgical History S/P wisdom tooth extraction Past Anesthesia History No Hx of Anesthesia Complications and No Family Hx of Anesthesia Complications History of PONV No Hx of PONV and No Hx of Motion Sickness Social History Smoking Status: Never smoker Hx Alcohol Use: No Hx Substance Use: No Physical Exam Vital Signs Last Vital Signs Temp 98.2 F 12/22/22 14:43 Pulse 81 12/22/22 17:23 Resp 18 12/22/22 17:17 BP 136/81 12/22/22 17:17 Pulse Ox 100 12/22/22 17:23 ENMT Mouth: no dentition abnormality Thyromental Distance: > or= 3.5 Finger Breadths Mallampati Class: II Neck normal visual inspection Respiratory normal respiratory effort Auscultation: lungs clear to auscultation bilaterally Cardiovascular Rate/Rhythm: regular rate and regular rhythm Testing Laboratory Results 12/22/22 12:24
[2022-12-22] MEDS ORDERED: NALOXONE HCL 1 MG in SODIUM CHLORIDE 0.9% 1000ML 1,000 ML IV PRN (18:00)
[2022-12-22] MEDS ORDERED: diphenhydrAMINE 50 MG/ML VIAL IV PRN (18:00)
[2022-12-22] MEDS ORDERED: ePHEDrine sulfate 50 MG/ML AMP IV PRN (18:00)
[2022-12-22] MEDS ORDERED: NALOXONE HCL 0.4 MG/1 ML VIAL/CARP IV PRN (18:00)
[2022-12-22] MEDS ORDERED: fentaNYL 2MCG/ML ROPIVACAINE 1.25MG/ML 100 ML BAG EPI PRN (18:00)
[2022-12-22] MEDS ORDERED: NALBUPHINE HCL INJ 10 MG/ML AMP IV PRN (18:00)
[2022-12-22] MEDS ORDERED: ONDANSETRON INJ 2 MG/ML 2 ML VIAL IV PRN (18:00)
[2022-12-22] MEDS: FAMOTIDINE 20 MG TAB PO SCH (18:30)
[2022-12-22] MEDS ORDERED: NURSING L&D Epidural Breakthrough Pain Update ONE (21:31)
--- NOTE | 2022-12-22 22:52 | Anesthesia Procedure Note ---
Date of Service December 22, 2022 Anesthesia Epidural Re-Dose Vital Signs Temp Pulse Resp BP Pulse Ox 98.4 F 96 H 20 124/58 L 99 12/22/22 21:00 12/22/22 22:45 12/22/22 22:00 12/22/22 22:45 12/22/22 22:38 Notes Pain Intensity: 9 Dilatation (cm): 8.0 Effacement (%): 90 Called by nursing to evaluate epidural as the patient is having increased pain. The epidural was re-dosed with the following medications (all medications via epidural route) after negative aspiration of the epidural catheter for CSF/HEME. 0.125% Bupivicaine (8ml) with 100 mcg Fentanyl After Epidural Re-Dose Mental Status: alert / awake / arousable Pain: improving with treatment (some resistance with bolus, epidural pump running without alarm, high pressure alarm with PCEA, back inspected, catheter remains at 15 cm, patient states improvement started after bolus, will monitor closely) Airway Patency, RR, SpO2: stable & adequate BP & HR: stable & adequate
[2022-12-22] MEDS ORDERED: ACETAMINOPHEN W/CODEINE #3 1 TAB PO PRN (23:04)
[2022-12-22] MEDS ORDERED: HYDROCORTISONE ACETATE 25 MG SUPP PR PRN (23:04)
[2022-12-22] MEDS ORDERED: oxyCODONE/ACETAMINOPHEN 5mg/325mg TAB PO PRN (23:04)
[2022-12-22] MEDS ORDERED: DIPHTHERIA/TETANUS/PERTUSSIS 0.5mL SYR/VIAL (Age 7+yrs) IM ONE (23:04)
[2022-12-22] MEDS ORDERED: ACETAMINOPHEN 325 MG TAB PO PRN (23:04)
[2022-12-22] MEDS ORDERED: BENZOCAINE 20% AER SPR 82.5 GM CAN EXT PRN (23:04)
--- NOTE | 2022-12-23 00:55 | Operative Report (OR) ---
DELIVERY NOTE: She is a 4, para 3, blood type is O positive, group B strep negative in her e joe labor. Said she been awake since 3:00 in the morning with contractions strong enough to keep her awake. Her previous visit in the office, her cervix was 3 cm, the first time I checked her after she entered the hospital, she was 4+. We let her labor on her own, she walked. Eventually, the contra ctions began to be stronger. She was rechecked. At that point, she requested and received epidural a nesthesia. She obtained good pain relief. She was then augmented with IV Pitocin and at about 6 cm, membranes were ruptured surgically. Fluid was clear. The Pitocin was continued. She went to full dilatation, pushed out a live female via direct occiput anterior position. There was a nuchal cord around the neck, which I left intact. Then, after delivery of the infant, I was able to let th e placenta pulse for 1 minute, then clamp the cord and dad cut the cord. Following this, cord blood was taken. With IV Pitocin running, the placenta was removed intact. She had a first-degree lacerat ion and the vaginal mucosa was approximated out and to beyond the hymenal ring with a running 2-0 Jw ryl. A deep suture, 2-0 Vicryl was used to approximate the bulbocavernosus muscle. Three interrupte d sutures used to approximate the perineal body and a running subcuticular suture to approximate the perineal skin edges. Following this, vaginal exam revealed no hematoma formation or sponges in the v agina. Estimated blood loss was 200 mL. Apgars were deferred to the nurses. Job ID: [id number]
[2022-12-23] MEDS: IBUPROFEN 600 MG TAB PO PRN ×4 (04:16→21:15)
[2022-12-23 06:42] LABS: Hematocrit (blood only) 32.1 % (37.0-47.0); Hemoglobin 10.1 g/dl (12.0-16.0); Mean Corpuscular Hemoglobin 28.8 pg (25.0-34.0); Mean Corpuscular Hgb Conc 31.5 g/dL (32.0-36.0); Mean Corpuscular Volume 91.5 fL (80.0-100.0); Mean Platelet Volume 12.6 fL (9.4-12.4); Platelet Count 194 K/uL (130-400); RDW Coefficient of Variation 12.9 % (11.5-14.5); RDW Standard Deviation 43.4 fL (36.4-46.3); Red Blood Count 3.51 M/uL (4.20-5.40)
[2022-12-23] MEDS: DOCUSATE SODIUM 100 MG CAP PO SCH ×2 (07:51→21:16)
[2022-12-23] MEDS: PRENATAL VITAMIN 1 TAB PO SCH (07:51)
[2022-12-23] MEDS: FAMOTIDINE 20 MG TAB PO SCH ×2 (08:40→21:17)
--- NOTE | 2022-12-23 10:02 | Obstetrical Progress Note ---
Date of Service December 23, 2022 Assessment & Plan Admission and Anticipated Discharge Date Admission Date: December 22, 2022 Subjective abdomen soft and non tender no calf tenderness ambulating well vaginal bleeding scant hgb 10.1 Results & Data Vital Signs (Past 12 Hours) Vital Signs Temp Pulse Pulse Resp BP BP Pulse Ox 12/23/22 07:30 36.4 C L 72 20 127/84 12/23/22 03:41 36.7 C 84 18 119/78 98 12/23/22 01:30 18 12/23/22 01:00 36.9 C 18 12/23/22 01:27 36.7 C 75 18 130/83 97 12/23/22 00:30 18 12/23/22 00:00 18 12/22/22 23:45 18 12/22/22 23:30 18 12/22/22 23:15 18 12/22/22 23:00 37.0 C 18 12/23/22 01:13 89 113/71 12/23/22 01:00 77 103/57 L 12/23/22 00:45 79 106/54 L 12/23/22 00:30 91 H 118/62 12/23/22 00:15 97 H 114/62 12/23/22 00:00 101 H 121/63 12/22/22 23:45 94 H 125/68 12/22/22 23:30 96 H 128/60 12/22/22 23:00 90 126/68 12/22/22 22:45 96 H 124/58 L 12/22/22 22:38 114 H 99 12/22/22 22:33 131 H 100 12/22/22 22:30 89 22 125/71 12/22/22 22:28 100 12/22/22 22:28 92 H 12/22/22 22:28 86 120/70 12/22/22 22:26 114 H 129/75 12/22/22 22:23 96 H 99 12/22/22 22:24 103 H 139/72 12/22/22 22:18 91 H 100 12/22/22 22:16 104 H 125/78 12/22/22 22:13 93 H 100 12/22/22 22:08 95 H 100 12/22/22 22:03 99 H 100 12/22/22 22:02 101 H 133/68 O2 Del Method 12/23/22 07:30 Room Air 12/23/22 03:41 Room Air 12/23/22 01:30 12/23/22 01:00 12/23/22 01:27 Room Air 12/23/22 00:30 12/23/22 00:00 12/22/22 23:45 12/22/22 23:30 12/22/22 23:15 12/22/22 23:00 12/23/22 01:13 12/23/22 01:00 12/23/22 00:45 12/23/22 00:30 12/23/22 00:15 12/23/22 00:00 12/22/22 23:45 12/22/22 23:30 12/22/22 23:00 12/22/22 22:45 12/22/22 22:38 12/22/22 22:33 12/22/22 22:30 12/22/22 22:28 12/22/22 22:28 12/22/22 22:28 12/22/22 22:26 12/22/22 22:23 12/22/22 22:24 12/22/22 22:18 12/22/22 22:16 12/22/22 22:13 12/22/22 22:08 12/22/22 22:03 12/22/22 22:02
--- NOTE | 2022-12-23 12:45 | Anesthesia Procedure Note ---
Date of Service December 23, 2022 Anesthesia Post Epidural Note Vital Signs Vital Signs: Temp Pulse Resp BP Pulse Ox O2 Del Method 97.9 F 82 18 132/90 98 Room Air 12/23/22 11:17 12/23/22 11:17 12/23/22 11:17 12/23/22 11:17 12/23/22 11:17 12/23/22 11:17 Pain Intensity Bilateral Abdomen: Pain Intensity: 7 Notes Mental Status: alert / awake / arousable and participated in evaluation Nausea / Vomiting: adequately controlled Pain: adequately controlled Airway Patency, RR, SpO2: stable & adequate BP & HR: stable & adequate Hydration State: stable & adequate Neuraxial Anesthesia: was administered and sensory block is resolving Anesthetic Complications: no major complications apparent and Pt Satisfied with anesthetic care Epidural: Removed without complications and With tip intact
[2022-12-23] MEDS ORDERED: bisacodyL 5 MG TABEC PO SCH (20:00)
[2022-12-24] MEDS ORDERED: bisacodyL 10 MG SUPP PR PRN
[2022-12-24 06:22] LABS: Hematocrit (blood only) 31.1 % (37.0-47.0); Hemoglobin 10.1 g/dl (12.0-16.0)
--- NOTE | 2022-12-24 08:15 | Obstetrical Progress Note ---
Date of Service December 24, 2022 Assessment & Plan Admission and Anticipated Discharge Date Admission Date: December 22, 2022 Subjective abdomen soft and non tender ambulating well no calf tenderness vaginal bleeding scant hgb 10.1 Results & Data Vital Signs (Past 12 Hours) Vital Signs Temp Pulse Resp BP Pulse Ox O2 Del Method 12/24/22 00:00 Room Air 12/23/22 22:58 36.6 C 80 18 113/75 97 Room Air
[2022-12-24] MEDS: DOCUSATE SODIUM 100 MG CAP PO SCH (08:33)
[2022-12-24] MEDS: IBUPROFEN 600 MG TAB PO PRN (08:34)
[2022-12-24] MEDS: PRENATAL VITAMIN 1 TAB PO SCH (08:35)
[2022-12-24] MEDS: FAMOTIDINE 20 MG TAB PO SCH (08:36)
--- NOTE | 2022-12-26 07:48 | Coding Query ---
CODING QUERY To promote full compliance with coding requirements relating to patient care, provider participation is requested in all cases of field account manager uncertainty. Please assist us with the question(s) below: Coding Question(s): The number of weeks of gestation was not documented. Please specify below the number of weeks of gestation below: ( ) Specified number of weeks gestation. Please specify___39 weeks 4 days ( ) Unknown number of weeks gestation ( ) Other: Please Specify Physician's Response(s): Thank you Dora Hernández Principal Diagnosis: "that condition established after study, to be chiefly responsible for occasioning the admission of the patient to the hospital for care." Co-Existing Principal Diagnosis: "when two or more diagnoses equally meet the criteria for principal diagnosis as determined by the circumstances of admission, diagnostic work up, and/or therapy provided, and the Alphabetic Index, Tabular List, or another coding guideline does not provide sequencing direction, any one of the diagnoses may be sequenced first." "When the physician has documented what appears to be a current diagnosis in the body of the record, but has not included the diagnosis in the final diagnostic statement, the physician should be asked whether the diagnosis should be added." (Source [facility]oding [facility] 2 QTR90. p3-4) FUNMI
== END 2022-12-24 12:25 | disposition home or self-care (01) | DRG 807 ==
LOC: OPB 10:51 → 4S1 10:52 → 4E2 12-23 01:25